=== PATIENT | female | born 1995 | race Two or more races ===

== ENCOUNTER 2018-12-01 12:49 | Emergency (ER) | payer MEDICAID ==
[~2018-12-01] VITALS: Ht 157.5 cm; Wt 56.7 kg
[2018-12-01 13:53] VITALS: BP 113/85
== END 2018-12-01 14:43 | disposition home or self-care (01) ==
LOC: ER 12:56
DX: S50.11XA Contusion of right forearm, initial encounter (principal); M54.2 Cervicalgia; V49.59XA Passenger injured in collision with other motor vehicles in traffic accident, initial encounter; Y93.89 Activity, other specified; Y99.8 Other external cause status; Y92.89 Other specified places as the place of occurrence of the external cause
CPT/HCPCS: 72040; 73070